=== PATIENT | male | born 1985 | race African-American/Black ===

== ENCOUNTER 2022-06-25 21:29 | Observation (INO) | payer SELFPAY ==
[2022-06-25] VITALS (16 sets, daily range): BP systolic 109–135; BP diastolic 69–95; PULSE 100–136; RESP 14–27; TEMP 37; O2SAT 94–100
--- NOTE | ~2022-06-25 | XR_ITS ---
EXAMINATION: XR chest 1V portable DATE: 06/25/2022 21:46 INDICATION: Cough. TECHNIQUE: A single frontal view of the chest was obtained. COMPARISON: CT abdomen and pelvis 02/18/2019 FINDINGS: The chest demonstrates clear lungs without pneumonia, pleural effusion, or pneumothorax. Th e heart size is normal. IMPRESSION: 1. No acute cardiopulmonary disease. Reviewed, dictated and finalized at location A.
[2022-06-25] MEDS: MAGNESIUM SULF 2 GM/WATER 50ML 2 GM/50 ML BAG IVPB (21:33)
--- NOTE | 2022-06-25 21:39 | ED.ASTHMA ---
HPI - Asthma General Chief Complaint: Asthma Stated Complaint: asthma attack Source: RN notes reviewed History of Present Illness HPI Narrative: Patient presents emergency department from home via EMS for asthma. Patient states that he has a history of asthma and was last admitted for his asthma approximately 1 month ago. He states he has an inhaler and nebulizer machine at home and is been using both of them and called EMS this evening because he been feeling more short of breath he states he has been having a cough this been nonproductive he denies any fevers or chills chest pain abdominal pain or any other symptoms. States he is currently on steroids at home as well the patient was given nebulizer treatment as well as Decadron 10 mg by EMS Related Data Allergies Allergy/AdvReac Type Severity Reaction Status Date / Time peanut Allergy Anaphylaxis Verified 06/25/22 21:35 wool Allergy Difficulty Verified 06/25/22 21:35 Breathing epinephrine AdvReac Other Verified 06/25/22 21:35 Review of Systems Review of Systems: Gen.: Denies fevers or chills ENT: Denies congestion Respiratory: See HPI CV: Denies chest pain or palpitations GI: Denies abdominal pain nausea, emesis or diarrhea Musculoskeletal: Denies back pain or muscle pain Neuro: Denies numbness, tingling, weakness or focal weakness Skin: Denies rash Except as documented, all other systems reviewed and negative [facility] Past Medical History Medical History (Updated 06/26/22 @ 00:36 by Tay Rivero DO) Asthma Social History Social History (Updated 06/25/22 @ 21:40 by Tay Rivero DO) Smoking status: Never smoker Exam Narrative: APPEARANCE: Moderate respiratory distress, sitting upright in bed HEENT: Normocephalic, atraumatic OMM RESPIRATORY: Moderate respiratory distress sitting upright speaking in short phrases wheezing throughout the bilateral lung trejo with decreased breath sounds in the bases CARDIOVASCULAR: Tachycardic and regular without murmurs rubs or gallops. ABDOMINAL: Soft, nontender, nondistended, no rebound or guarding MUSCULOSKELETAl: Moves all extremities. No clubbing, cyanosis or edema. Bilateral calves soft and nontender NEURO: Awake and alert. Following commands, speech normal, no focal deficits SKIN:: Warm, dry. Normal Color PSYCHIATRIC: Normal affect/mood, Course Course Emergency Course: Following breathing treatment breathing is improved patient is more relaxed there is still noted wheezing in the upper lung trejo patient does have continued sinus tachycardia and with continued wheezing will admit at this time Dr. Hair agrees with admission Discussed with patient and family results of workup and diagnosis. Discussed need for admission. Patient and family understand and agree to current treatment plan Vital Signs Vital signs: Vital Signs Temperature 98.6 F 06/25/22 21:26 Pulse Rate 136 H 06/25/22 21:26 Respiratory Rate 18 06/25/22 21:26 Pulse Oximetry 94 06/25/22 21:26 Oxygen Delivery Venturi Mask 06/25/22 21:26 Oxygen Flow Rate 10 06/25/22 21:26 Temperature 98.6 F 06/25/22 21:26 Pulse Rate 107 H 06/25/22 23:41 Respiratory Rate 22 H 06/25/22 23:41 Blood Pressure 120/73 06/25/22 23:41 Pulse Oximetry 100 06/25/22 23:41 Oxygen Delivery Venturi Mask 06/25/22 21:30 Oxygen Flow Rate 10 06/25/22 21:30 MDM - Asthma Lab Data Result diagrams: 06/25/22 21:53 06/25/22 22:43 Labs: Lab Results 06/25/22 06/25/22 06/25/22 Range/Units 21:53 21:53 22:43 WBC 6.9 (4.5-10.0) K/mm3 RBC 4.40 L (4.6-6.20) M/mm3 Hgb 13.8 L (14.0-18.0) g/dL Hct 40.5 L (42.0-52.0) % MCV 92.0 (80-100) fl MCH 31.4 (26-34) pg MCHC 34.1 (32-36) g/dl RDW 12.2 (11.5-14.5) % Plt Count 351 (150-375) k/mm3 MPV 9.1 (7.4-10.4) fl Immature Gran % (Auto) 0.4 (0-0.5) % Neut % (Auto) 54.1 (45.5-73.1) % Lymph % (Auto)
[2022-06-25] MEDS: IPRATROPIUM BR 0.02% INH SOLN 0.5 MG/2.5 ML VIAL INHALATION (21:42)
[2022-06-25] MEDS: ALBUTEROL SULFATE NEB 2.5 MG/3 ML INH 5 MG INHALATION (21:42)
--- NOTE | 2022-06-25 21:49 | PC.NURSE ---
ED respiratory at bedside.
[2022-06-25 22:00] LABS: Basophils Percent Auto 0.1 % (0.2-1.2); Eosinophils Absolute Auto 0.1 K/mm3 (0-0.3); Hematocrit 40.5 % (42.0-52.0); Hemoglobin 13.8 g/dL (14.0-18.0); Immature Granulocyte Absolute 0.03 K/mm3 (0.00-0.031); Immature Granulocyte Percent A 0.4 % (0-0.5); Lymphocytes Absolute Auto 2.36 K/mm3 (0.9-3.2); Mean Corpuscular HGB Conc 34.1 g/dl (32-36); Mean Corpuscular Hemoglobin 31.4 pg (26-34); Mean Platelet Volume 9.1 fl (7.4-10.4); Monocytes Absolute Auto 0.7 K/mm3 (0.1-0.6); Monocytes Percent Auto 9.4 % (2.6-8.5); Neutrophils Absolute Auto 3.8 K/mm3 (1.3-6.7); Neutrophils Percent Auto 54.1 % (45.5-73.1); Platelet Count Result 351 k/mm3 (150-375); Red Cell Distribution Width 12.2 % (11.5-14.5); White Blood Count 6.9 K/mm3 (4.5-10.0)
--- NOTE | 2022-06-25 22:08 | PC.NURSE ---
PD at bedside, patient is in custody. Per EMS patient was [place] up at [facility] [place] [facility].
[2022-06-25 22:36] LABS: SARS-CoV-2 RNA PCR Negative
[2022-06-25 23:03] LABS: Alanine Aminotransferase 25 U/L (6-50); Albumin Level 4.5 g/dL (3.5-5.1); Alkaline Phosphatase 98 U/L (38-126); Anion Gap 18 mmol/L (8-16); Aspartate Amino Transferase 27 U/L (17-59); Bilirubin,Total 1.4 mg/dL (0.2-1.3); Blood Urea Nitrogen 8 mg/dL (9-20); Calcium 8.5 mg/dL (8.4-10.2); Carbon Dioxide 21 mmol/L (22-30); Chloride 103 mmol/L (98-107); Estimated CRCL calculation 81 ml/min; Estimated Glomerular Filt Rate > 60; Glucose 138 mg/dL (65-110); Sodium 142 mmol/L (137-145)
--- NOTE | 2022-06-25 23:06 | PC.NURSE ---
Patient taken of o2 per VORB by ERP.
[2022-06-26] VITALS (26 sets, daily range): BP systolic 102–135; BP diastolic 60–78; PULSE 82–127; RESP 14–21; TEMP 36.4–36.9; O2SAT 98–100; BMI 27.3
[2022-06-26] MEDS: POTASSIUM CHLORIDE 20 MEQ TABLET 40 MEQ PO ×2 (00:12→09:52)
--- NOTE | 2022-06-26 01:04 | PC.NURSE ---
The officer at bedside states he will be going upstairs with the patient since he remains in custody.
--- NOTE | 2022-06-26 01:41 | ADMGEN ---
This patient, Nuno Vizcarra, was admitted to [address] [facility] Surg Room 320-01. Patient/family oriented to hospital policies and general routines including ID bracelet, bed and alarms, visiting hours, pain management, procedures, bathroom and other care routines, personal items, smoking policy, room service/diet, and visiting hours. Information on how to activate the Rapid Response Team has been discussed. Patient/Family are encouraged to report perceived risks to care and to ask questions if they do not understand what they are told or what they should do.
[2022-06-26] MEDS: methylPREDNISolone SOD SUCC 125 MG VIAL 60 MG IV PUSH ×3 (05:17→18:14)
[2022-06-26] MEDS: IPRATROPIUM BR 0.02% INH SOLN 0.5 MG/2.5 ML VIAL INHALATION ×4 (06:17→20:39)
[2022-06-26] MEDS: ALBUTEROL SULFATE NEB 2.5 MG/3 ML INH 5 MG INHALATION ×4 (06:17→20:39)
[2022-06-26] MEDS: LORazepam INJ (*CRX) 2 MG/ML VIAL 1 MG IV PUSH (06:42)
--- NOTE | 2022-06-26 06:51 | ECG_ITS ---
Measurements Intervals [place] Rate: 113 P: 74 MT: 176 QRS: 62 QRSD: 105 T: 37 QT: 335 QTc: 461 Interpretive Statements SINUS TACHYCARDIA BORDERLINE ST-T WAVE ABNORMALITY- INFERIOR LEADS BASELINE ARTIFACT- I, III, AVL, V2, V5-V6 ABNORMAL ECG NO PREVIOUS ECG AVAILABLE FOR COMPARISON Electronically Signed On 06-26-2022 8:05:33 CDT by Dionte Packer D.O.
--- NOTE | 2022-06-26 07:20 | PC.NURSE ---
at 0635 patient receiving breathing treatment. c/o chest pressure, hand cramping, and shortness of breath. unable to obtain pulse ox on room air, placed on oxygen up to 10 L before able to obtain sat of 100%.
--- NOTE | 2022-06-26 07:32 | PM.IMHP ---
H&P: HPI History of Present Illness Date/Time: 06/26/22 07:32 Chief Complaint: Shortness of breath Narrative: 36-year-old male with past medical history of severe asthma with 2 intubations for lung collapse in the past 2 decades is presenting from half-way with an asthma attack. Patient states a couple weeks ago he was started on amoxicillin and prednisone for what he calls ?a chest infection. ? He states his symptoms started to get a little better when he was sent to half-way. At that time, the amoxicillin and prednisone were discontinued. His symptoms got progressively worse with more shortness of breath, coughing, dyspnea on exertion and conversational dyspnea. 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 He denies fevers or chills, no nausea vomiting or diarrhea. No headaches or vision changes. In the ER, he was given breathing treatments, magnesium and Solu-Medrol with some improvement. However, he is requiring 6 L nasal cannula to maintain oxygenation. Therefore he was admitted for observation. Review of Systems Review of Systems: 12 point review of systems was assessed and was negative except as noted in the HPI PMFSH Past Medical History Medical History Asthma Severe asthma requiring intubation x2 with associated pneumothorax x2 Family History Family History (Updated 06/26/22 @ 16:32 by Herminia Guajardo DO) Other Asthma Social History Social History (Updated 06/26/22 @ 16:33 by Herminia Guajardo DO) Social History: Currently in half-way Smoking status: Never smoker Alcohol intake: former Substance use: never Spiritual care concerns: No Meds Home Medications and Allergies Allergies Allergy/AdvReac Type Severity Reaction Status Date / Time peanut Allergy Anaphylaxis Verified 06/25/22 21:35 wool Allergy Difficulty Verified 06/25/22 21:35 Breathing epinephrine AdvReac Other Verified 06/25/22 21:35 Vital Signs Vital Signs - 24 hr 06/25/22 21:26 06/25/22 21:43 06/25/22 22:05 Temperature 98.6 F Pulse Rate 136 H 131 H 125 H Respiratory Rate 18 20 16 Blood Pressure Pulse Oximetry 94 100 Oxygen Delivery Venturi Mask Oxygen Flow Rate 10 06/25/22 22:15 06/25/22 22:22 06/25/22 22:30 Temperature Pulse Rate 118 H 117 H 115 H Respiratory Rate 17 16 17 Blood Pressure 135/84 Pulse Oximetry 100 100 100 Oxygen Delivery Oxygen Flow Rate 06/25/22 21:30 06/25/22 22:45 06/25/22 23:00 Temperature Pulse Rate 107 H 100 Respiratory Rate 17 17 Blood Pressure Pulse Oximetry 98 100 99 Oxygen Delivery Venturi Mask Oxygen Flow Rate 10 06/25/22 23:02 06/25/22 23:15 06/25/22 23:21 Temperature Pulse Rate 110 H 103 H 101 H Respiratory Rate 17 14 Blood Pressure 121/95 H 109/69 Pulse Oximetry 100 94 97 Oxygen Delivery Oxygen Flow Rate 06/25/22 23:30 06/25/22 23:41 06/25/22 23:42 Temperature Pulse Rate 107 H 107 H 112 H Respiratory Rate 15 22 H 27 H Blood Pressure 120/73 Pulse Oximetry 98 100 99 Oxygen Delivery Oxygen Flow Rate 06/25/22 23:45 06/26/22 00:00 06/26/22 00:01 Temperature Pulse Rate 118 H 107 H 101 H Respiratory Rate 23 H 15 17 Blood Pressure 106/60 Pulse Oximetry 100 100 100 Oxygen Delivery Oxygen Flow Rate 06/26/22 00:15 06/26/22 00:21 06/26/22 00:30 Temperature Pulse Rate 96 95 97 Respiratory Rate 16 16 16 Blood Pressure 112/66 Pulse Oximetry 98 100 100 Oxygen Delivery Oxygen Flow Rate 06/26/22 00:41 06/26/22 00:45 06/26/22 01:19 Temperature 98.0 F Pulse Rate 102 H 99 94 Respiratory Rate 20 14 21 H Blood Pressure 102/65 109/78 Pulse Oximetry 99 100 99 Oxygen Delivery Oxygen Flow Rate 06/26/22 02:47 06/26/22 03:01 06/26/22 03:02 Temperature 97.7 F Pulse Rate 95 90 Respiratory Rate 20 B
[2022-06-26] MEDS: MONTELUKAST SODIUM 10 MG TABLET PO ×2 (18:15→21:24)
[2022-06-26] MEDS: FLUTICASONE/SALMETEROL 115-21 MCG INHALER 1 PUFF 2 PUFF INHALATION (20:38)
[2022-06-26] MEDS: ACETAMINOPHEN 325 MG TABLET 650 MG PO (21:24)
[2022-06-27] VITALS (11 sets, daily range): BP systolic 119–124; BP diastolic 72–81; PULSE 91–110; RESP 16–18; TEMP 36.1–36.4; O2SAT 99–100
[2022-06-27] MEDS: methylPREDNISolone SOD SUCC 125 MG VIAL 60 MG IV PUSH ×3 (00:58→12:57)
[2022-06-27] MEDS: IPRATROPIUM BR 0.02% INH SOLN 0.5 MG/2.5 ML VIAL INHALATION ×3 (02:31→13:42)
[2022-06-27] MEDS: ALBUTEROL SULFATE NEB 2.5 MG/3 ML INH 5 MG INHALATION ×3 (02:31→13:43)
[2022-06-27 07:08] LABS: Basophils Percent Auto 0.1 % (0.2-1.2); Hematocrit 38.4 % (42.0-52.0); Hemoglobin 12.5 g/dL (14.0-18.0); Immature Granulocyte Absolute 0.04 K/mm3 (0.00-0.031); Immature Granulocyte Percent A 0.3 % (0-0.5); Lymphocytes Absolute Auto 0.81 K/mm3 (0.9-3.2); Lymphocytes Percent Auto 6.8 % (18.3-44.2); Mean Corpuscular HGB Conc 32.6 g/dl (32-36); Mean Corpuscular Hemoglobin 30.9 pg (26-34); Mean Platelet Volume 9.4 fl (7.4-10.4); Monocytes Absolute Auto 0.6 K/mm3 (0.1-0.6); Monocytes Percent Auto 4.6 % (2.6-8.5); Neutrophils Absolute Auto 10.5 K/mm3 (1.3-6.7); Neutrophils Percent Auto 88.2 % (45.5-73.1); Platelet Count Result 336 k/mm3 (150-375); Red Blood Count 4.04 M/mm3 (4.6-6.20); Red Cell Distribution Width 12.5 % (11.5-14.5); White Blood Count 11.9 K/mm3 (4.5-10.0)
[2022-06-27 07:20] LABS: Alanine Aminotransferase 21 U/L (6-50); Albumin Level 4.2 g/dL (3.5-5.1); Alkaline Phosphatase 65 U/L (38-126); Anion Gap 14 mmol/L (8-16); Aspartate Amino Transferase 19 U/L (17-59); Bilirubin,Total 1.4 mg/dL (0.2-1.3); Blood Urea Nitrogen 12 mg/dL (9-20); Calcium 8.7 mg/dL (8.4-10.2); Carbon Dioxide 22 mmol/L (22-30); Chloride 103 mmol/L (98-107); Estimated CRCL calculation 86 ml/min; Estimated Glomerular Filt Rate > 60; Glucose 151 mg/dL (65-110); Potassium 4.2 mmol/L (3.4-5.0); Sodium 139 mmol/L (137-145)
[2022-06-27] MEDS: ACETAMINOPHEN 325 MG TABLET 650 MG PO (07:56)
[2022-06-27] MEDS: FLUTICASONE/SALMETEROL 115-21 MCG INHALER 1 PUFF 2 PUFF INHALATION (08:47)
--- NOTE | 2022-06-27 12:36 | PM.DS ---
DS: Admitting Diagnosis Discharge Date June 27, 2022 Admitting Diagnosis Shortness of breath DS: Discharge Diagnosis Discharge Diagnosis (1) Acute asthma exacerbation: Code(s): J45.901 - Unspecified asthma with (acute) exacerbation Status: Acute Assessment and Plan: Will start Advair, Singulair, continue Solu-Medrol, breathing treatments every 4-6 hours Plan DVT prophylaxis with SCDs GI prophylaxis not indicated Code status full code DS: Summary Hospital Course Hospital Course: 36-year-old male with past medical history of severe asthma with 2 intubations for lung collapse in the past 2 decades is presenting from care home with an asthma attack.? Patient states a couple weeks ago he was started on amoxicillin and prednisone for what he calls ?a chest infection. ?? He states his symptoms started to get a little better when he was sent to care home.? At that time, the amoxicillin and prednisone were discontinued.? His symptoms got progressively worse with more shortness of breath, coughing, dyspnea on exertion and conversational dyspnea.? 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 He denies fevers or chills, no nausea vomiting or diarrhea.? No headaches or vision changes.? In the ER, he was given breathing treatments, magnesium and Solu-Medrol with some improvement.? However, he is requiring 6 L nasal cannula to maintain oxygenation.? Therefore he was admitted for observation. His symptoms improved dramatically with steroids, breathing treatments, Advair and singular. He was able to be weaned to room air comfortably. Therefore, he was discharged back to care home on Advair, a prednisone burst, Singulair and albuterol as needed. Time Spent with Patient Time attestation: Total time spent providing and/or coordinating discharge services: Exam Narrative: General: No acute distress, alert and oriented per baseline HEENT: Atraumatic, normocephalic, mucous membranes moist CV: Regular rate and rhythm, S1, S2 Lungs: Clear to auscultation bilaterally, no wheeze Abdomen: Soft, nontender, nondistended Extremities: Normal to inspection Skin: No rashes noted, no lesions or wounds seen Psych: Euthymic, normal affect DS: Data Data Completed and Pending Labs on day of discharge: Labs from last 24 hours 06/27/22 06/27/22 06:40 06:40 WBC 11.9 H RBC 4.04 L Hgb 12.5 L Hct 38.4 L MCV 95.0 MCH 30.9 MCHC 32.6 RDW 12.5 Plt Count 336 MPV 9.4 Immature Gran % (Auto) 0.3 Neut % (Auto) 88.2 H Lymph % (Auto) 6.8 L [place] % (Auto) 4.6 Eos % (Auto) 0.0 Baso % (Auto) 0.1 L Lymph # (Auto) 0.81 L [place] # (Auto) 0.6 Eos # (Auto) 0.0 Baso # (Auto) 0.0 Abs Immat Gran (auto) 0.04 H Absolute Neuts (auto) 10.5 H Absolute Nucleated RBC 0.0 Nucleated RBC % 0.0 Sodium 139 Potassium 4.2 Chloride 103 Carbon Dioxide 22 Anion Gap 14 BUN 12 Creatinine 1.10 Estim Creat Clear Calc 86 Estimated GFR > 60 Glucose 151 H Calcium 8.7 Total Bilirubin 1.4 H AST 19 ALT 21 Alkaline Phosphatase 65 Total Protein 8.0 Albumin 4.2 Discharge Plan Discharge Attending physician on discharge: Herminia Guajardo Discharging Clinician: Herminia Guajardo Patient Disposition: Home, Self-Care Activity: as tolerated Diet: as tolerated Patient Instructions: Asthma (DC) Stand Alone Forms: General Discharge Information Follow-up/Referrals: PHYSICIAN,FUR REMODELER [Primary Care Provider] - Discharge Medications: New montelukast [Singulair] 10 mg Tablet 10 mg PO HS 30 Days Qty: 30 0RF Advair HFA 115-21 mcg/actuation Hfa Aerosol Inhaler 2 puff inhalation Q12HRT 30 Days Qty: 12 0RF prednisone 50 mg tablet 50 mg PO DAILY Qty: 5 0RF Date of admission: 06/26/22 00:24 Primary Care Provider: PHYSICIAN,FUR REMODELER Admitting Provider: Lee Ann
== END 2022-06-27 14:20 | disposition home or self-care (01) ==
LOC: ANHED 06-26 00:36 → ANH3MEDSUR 06-26 01:20
PROVIDERS: Admitting Provider Internal Medicine; Emergency Provider Emergency Medicine; Visit Provider Student in an Organized Health Care Education/Training Program
DX: J45.901 Unspecified asthma with (acute) exacerbation (principal); R00.0 Tachycardia, unspecified; R94.31 Abnormal electrocardiogram [ECG] [EKG]; Z20.822 Contact with and (suspected) exposure to COVID-19; Z79.51 Long term (current) use of inhaled steroids
CPT/HCPCS: 36415; 71045; 80053; 85025; 93005; 94640; 96365; 96374; 96375; 96376; 99285; A9270; C9803; G0378; J2060; J2930; J3475; U0003; U0005

== ENCOUNTER 2022-06-27 21:10 | Emergency (ER) | payer OTHER, SELFPAY ==
[2022-06-27] VITALS (8 sets, daily range): BP systolic 106–123; BP diastolic 49–82; PULSE 110–139; RESP 15–21; TEMP 36.6; O2SAT 82–100
--- NOTE | 2022-06-27 21:42 | ECG_ITS ---
Measurements Intervals [place] Rate: 114 P: 64 [place]: 147 QRS: 48 QRSD: 95 T: 19 QT: 354 QTc: 488 Interpretive Statements SINUS TACHYCARDIA INCOMPLETE RIGHT BUNDLE BRANCH BLOCK NONSPECIFIC T-WAVE ABNORMALITY- INFERIOR LEADS ABNORMAL ECG COMPARED TO ECG 06/26/2022 07:01:00 NO SIGNIFICANT CHANGES Electronically Signed On 06-28-2022 6:50:44 CDT by Dionte Packer D.O.
[2022-06-27] MEDS: ALBUTEROL SULFATE NEB 2.5 MG/3 ML INH 15 MG INHALATION (22:12)
[2022-06-27] MEDS: FAMOTIDINE 20 MG/2 ML VIAL 40 MG IV PUSH (22:18)
[2022-06-27] MEDS: methylPREDNISolone SOD SUCC 125 MG VIAL IV PUSH (22:18)
[2022-06-27] MEDS: diphenhydrAMINE HCl INJ 50 MG/ML VIAL IV PUSH (22:19)
[2022-06-27 22:23] LABS: Basophils Percent Auto 0.1 % (0.2-1.2); Hematocrit 39.2 % (42.0-52.0); Hemoglobin 13.1 g/dL (14.0-18.0); Immature Granulocyte Absolute 0.15 K/mm3 (0.00-0.031); Immature Granulocyte Percent A 1.1 % (0-0.5); Lymphocytes Absolute Auto 0.66 K/mm3 (0.9-3.2); Lymphocytes Percent Auto 4.8 % (18.3-44.2); Mean Corpuscular HGB Conc 33.4 g/dl (32-36); Mean Corpuscular Hemoglobin 31.3 pg (26-34); Mean Corpuscular Volume 93.8 fl (80-100); Mean Platelet Volume 9.3 fl (7.4-10.4); Monocytes Absolute Auto 1.3 K/mm3 (0.1-0.6); Monocytes Percent Auto 9.1 % (2.6-8.5); Neutrophils Absolute Auto 11.7 K/mm3 (1.3-6.7); Neutrophils Percent Auto 84.9 % (45.5-73.1); Platelet Count Result 334 k/mm3 (150-375); Red Blood Count 4.18 M/mm3 (4.6-6.20); Red Cell Distribution Width 12.5 % (11.5-14.5); White Blood Count 13.8 K/mm3 (4.5-10.0)
[2022-06-27] MEDS: SODIUM CHLORIDE 0.9% IV 1,000 ML 999 ML IV CONT (22:28)
[2022-06-27 22:30] LABS: SARS-CoV-2 RNA PCR Negative
[2022-06-27 22:31] LABS: Anion Gap 19 mmol/L (8-16); Blood Urea Nitrogen 16 mg/dL (9-20); Calcium 9.2 mg/dL (8.4-10.2); Carbon Dioxide 19 mmol/L (22-30); Chloride 101 mmol/L (98-107); Estimated CRCL calculation 73 ml/min; Estimated Glomerular Filt Rate > 60; Glucose 159 mg/dL (65-110); Magnesium 1.9 mg/dL (1.6-2.3); Potassium 3.3 mmol/L (3.4-5.0); Sodium 139 mmol/L (137-145)
[2022-06-27] MEDS: MAGNESIUM SULF 2 GM/WATER 50ML 2 GM/50 ML BAG IVPB (22:41)
[2022-06-27 22:58] LABS: Lactic Acid Reflex 6.3 mmol/L (0.7-2.0)
[2022-06-27] MEDS: SODIUM CHLORIDE 0.9% IV 2,000 ML 999 ML IV CONT (23:27)
[2022-06-28 00:19] LABS: Lactic Acid Reflex 5.9 mmol/L (0.7-2.0)
--- NOTE | 2022-06-28 00:33 | ED.GENADULT ---
HPI - General Adult General Chief complaint: Shortness of Breath/Dyspnea Stated complaint: ASTHMA Time Seen by Provider: 06/27/22 21:35 History of Present Illness HPI narrative: This is a 36-year-old male with history of asthma and allergy to peanuts presenting to the ED with difficulty breathing. Patient has restarted having difficulty breathing several hours ago. It is also associated with itching around the patient's chest and neck. Also has a sensation of throat closure. Patient is allergic to peanuts but has not had a known exposure. Patient also has a history of asthma and has been seen in our emergency department before. Related Data Allergies Allergy/AdvReac Type Severity Reaction Status Date / Time peanut Allergy Anaphylaxis Verified 06/25/22 21:35 wool Allergy Difficulty Verified 06/25/22 21:35 Breathing epinephrine AdvReac Other Verified 06/25/22 21:35 Review of Systems Review of Systems: CONSTITUTIONAL: Denies night sweats. EYES: No eye pain ENT: Denies rhinorrhea CARDIOVASCULAR: Denies palpitations RESPIRATORY: Denies hemoptysis GASTROINTESTINAL: Denies hematemesis GENITOURINARY: Denies hematuria. SKIN: Denies rash MUSCULOSKELETAL: Denies myalgia. NEUROLOGIC: Denies weakness. PSYCHIATRIC: Denies delusions PMFSH Past Medical History Medical History Asthma Severe asthma requiring intubation x2 with associated pneumothorax x2 Family History Family History Other Asthma Social History Social History Social History: Currently in residential Smoking status: Never smoker Alcohol intake: former Substance use: never Spiritual care concerns: No Exam Narrative: APPEARANCE: No apparent distress. Head atraumatic. EYES: PERRLA/EOMI, NOSE: Normal no drainage NECK: Supple, Trachea midline RESPIRATORY: Mild wheezing in all trejo. CARDIOVASCULAR: S1S2 appreciated ABDOMINAL: Soft, nontender, nondistended, MUSCULOSKELETAl: No obvious deformities NEURO: Alert. Moving 4/4 extremities SKIN:: Excoriations with no urticarial wheals over the patient's chest and neck PSYCHIATRIC: Normal affect Course Vital Signs Vital signs: Vital Signs Temperature 97.8 F 06/27/22 21:10 Pulse Rate 139 H 06/27/22 21:10 Respiratory Rate 21 H 06/27/22 21:10 Blood Pressure 123/82 06/27/22 21:10 Pulse Oximetry 85 L 06/27/22 21:10 Oxygen Delivery Non-Rebreather Mask 06/27/22 21:10 Oxygen Flow Rate 10 06/27/22 21:10 Temperature 97.8 F 06/27/22 21:10 Pulse Rate 113 H 06/27/22 23:31 Respiratory Rate 19 06/27/22 23:31 Blood Pressure 115/55 L 06/27/22 23:31 Pulse Oximetry 100 06/27/22 23:31 Oxygen Delivery Non-Rebreather Mask 06/27/22 21:36 Oxygen Flow Rate 10 06/27/22 21:36 Medical Decision Making MDM Narrative Medical decision making narrative: this is a 36-year-old male presenting to ED in respiratory distress. Patient is also complaining of the itching. Patient will be treated for asthma as well as any allergic reaction. Patient's lab work was significant for an initial lactate of 6.3. This was repeated after patient received some fluids and was trending down to 5.9. Potassium was slightly low at 3.3 although this is most likely from shifting from the hour long albuterol treatment he received. Chest x-ray was unremarkable. EKG interpretation: Rhythm Sinus tach, Rate 114], [place] -[normal], [place] -[normal], QRS [narrow], QTC [normal], T waves - T-wave inversions in lead 3 and AVF, ST Segments - [Negative for concerning elevations] Final interpretations: sinus tachycardia with nonspecific T-wave inversions Upon re-evaluation the patient is resting comfortably. He is no longer wheezing. His vital signs have normalized. The patient will be discharged into police custody. Differential Diagnosis
[2022-06-28 00:49] VITALS: BP 110/46; PULSE 92; RESP 18; O2SAT 100
[2022-06-28 01:20] LABS: Reflex Lactic Acid Yes or No Add Lactic
== END 2022-06-28 01:07 ==
PROVIDERS: Emergency Provider Emergency Medicine
DX: T78.40XA Allergy, unspecified, initial encounter (principal); J45.909 Unspecified asthma, uncomplicated; Z20.822 Contact with and (suspected) exposure to COVID-19; Z91.010 Allergy to peanuts
CPT/HCPCS: 36415; 80048; 83605; 83735; 85025; 93005; 94640; 96361; 96365; 96375; 99284; C9803; J1200; J2930; J3475; J7030; U0003; U0005

== ENCOUNTER 2025-06-25 23:34 | Emergency (ER) | payer SELFPAY ==
--- NOTE | ~2025-06-25 | XR_ITS ---
Examination: XR chest 2V Clinical History: sob Comparison: 06/25/2022 Technique: PA and Lateral Findings: Cardiomediastinal silhouette normal size and configuration. Lungs clear. No acute bony abnormality. IMPRESSION: 1. No acute cardiopulmonary findings. Reviewed, dictated and finalized at location R.
--- OUTSIDE RECORDS SUMMARY | 2025-06-25 23:38 | XMS_ITS | Clinical Summary ---
Author Organization [facility] Address [address] [place] [id number] Care Team Providers Care Aircraft Riveter Name Role Phone Unavailable Primary Care Provider Unavailabl e Social History Tobacco Use Types Packs/Day Years Used Date Smoking Tobacco: Never Assessed Sex and Gender Information Value Date Recorded Sex Assigned at Not on file Legal Sex Male 4:56 PM CDT Gender Identity Not on file Sexual Orientation Not on file Plan of Treatment Health Maintenance Due Date Last Done Comments Annual Physical 1989 Hepatitis C 2004 DTaP, Tdap and Td Vaccines ( 1 - Tdap) 2005 Hepatitis B Vaccines (1 of 3 - 19+ 3-dose series) 2005 HPV Vaccines (1 - 3-dose SCD M series) 2013 COVID-19 Vaccine ( - 2023-2 5 season) 2025 Meningococcal B Vaccine Aged Out No l onger eligible based on patient's age to complete this topic Meningococcal Vaccine Aged Out No pari dede eligible based on patient's age to complete this topic Pneumococcal Vaccine: Pediat rics (0 to 5 Years) and At-Risk Patients (6 to 49 Years) Aged Out No longer eligible b ased on patient's age to complete this topic RSV Immunizations Under 20 Months Aged Out No longer eligible based on patient's age to complete this topic
[2025-06-25 23:50] VITALS: BP 173/112; PULSE 117; RESP 22; TEMP 36.8; O2SAT 100
[2025-06-26] VITALS (13 sets, daily range): BP systolic 136–159; BP diastolic 81–109; PULSE 97–98; RESP 16; O2SAT 96–99
--- NOTE | 2025-06-26 | ED_ITS ---
HPI - General Adult General Chief complaint: Unspecified Stated complaint: Not feeling well Asthma acting up, BP high Time Seen by Provider: 06/26/25 00:00 Source: patient Mode of arrival: ambulatory Limitations: no limitations History of Present Illness HPI narrative: Patient is a 39-year-old male who presents the ED with report of shortness of breath. Patient reports history of asthma and states he had an asthma attack last week. Was seen at a hospital in [place], rx'd steroids. Has been taking these as prescribed with improvement. He reports his breathing became worse again tonight a few hours ago. He gave himself a nebulizer treatment at home which he does feel improved his breathing. He checked his blood pressure afterwards however noted to be elevated into the 170s /100s. He became concerned and prompted here for further evaluation. Denies recent cough or cold symptoms, fevers, pain or swelling in his legs, chest pain. Patient denies previous history of hypertension. Does not take any medications for his blood pressure. Related Data Allergies Allergy/AdvReac Type Severity Reaction Status Date / Time peanut Allergy Anaphylaxis Verified 06/25/22 21:35 wool Allergy Difficulty Verified 06/25/22 21:35 Breathing epinephrine AdvReac Other Verified 06/25/22 21:35 Review of Systems 2 Review of Systems: All systems reviewed & are unremarkable except as noted in HPI. All systems reviewed & are unremarkable except as noted in HPI and below PMFSH Past Medical History Medical History Asthma Severe asthma requiring intubation x2 with associated pneumothorax x2 Family History Family History Other Asthma Social History Social History Social History: Currently in [facility] Smoking status: Never smoker Alcohol intake: former Substance use: never Spiritual care concerns: No Exam 2 Narrative: GENERAL: Well appearing, well-nourished, non-toxic, in no acute distress. HEAD: Normocephalic, atraumatic. RESPIRATORY: Airway patent, respirations nonlabored. Very occasional faint wheezing. No significant persistent wheezing heard. CARDIOVASCULAR: Borderline tachycardic with regular rhythm without murmurs, rubs, or gallops. MUSCULOSKELETAL: Moves all extremities. No gross deformities. SKIN: Warm, dry, normal color. NEURO: A&O X3. Speech clear. Cranial nerves II-XII grossly intact. Steady gait. No ataxic movements. PSYCHIATRIC: Anxious. Normal interaction. Course Vital Signs Vital signs: Vital Signs Temperature 98.3 F 06/25/25 23:50 Pulse Rate 117 H 06/25/25 23:50 Respiratory Rate 22 H 06/25/25 23:50 Blood Pressure 173/112 H 06/25/25 23:50 Pulse Oximetry 100 06/25/25 23:50 Temperature 98.3 F 06/25/25 23:50 Pulse Rate 98 06/26/25 02:54 Respiratory Rate 16 06/26/25 02:54 Blood Pressure 136/91 H 06/26/25 02:54 Pulse Oximetry 96 06/26/25 02:54 Medical Decision Making MDM Narrative Medical decision making narrative: Patient presented to ED with shortness of breath, history of asthma, elevated blood pressure tonight. Patient's blood pressure upon arrival 173/112. He was also tachycardic and tachypneic. Afebrile. Oxygen stable on room air. He denies previous history of hypertension. Will continue to monitor. BP did improve into the 150 systolic without intervention prior to my evaluation. Patient is in no distress, but is very anxious. Likely contributing to symptoms. No evidence of respiratory distress. No significant wheezing even heard on auscultation. He did report using a nebulizer just prior to arrival and states this has improved his breathing. EKG with sinus tachycardia, no concerning ST changes Laboratory studies with mild leukocytosis of 14.0. Patient has been on steroids recently. CMP unremarkable. Kidney function is stable. Mild elevation of total bilirubin, but this appears chronic per records, consistent with previous records. No right upper quadrant tenderness on exam. Otherwise normal LFTs. Troponin within normal range D-dimer within normal range Viral swabs negative Chest x-ray interpreted by myself without evidence of acute focal consolidation. Blood pressure has normalized into the 130s over 90s. Patient feeling improved after fluids. Discussed overall reassuring workup, feel patient is safe for discharge home at this time. Recommended close follow-up with PCP for further evaluation. Recommend he continue to monitor his pressures at home, as well as continue inhaler/nebulizers as needed. Discussed strict return precautions. Patient in agreement plan. Discharged in stable condition. Medical Records Medical records reviewed: Yes I reviewed the external patient's medical records. Vital Signs Vital Signs: Vital Signs Temperature 98.3 F 06/25/25 23:50 Pulse Rate 117 H 06/25/25 23:50 Respiratory Rate 22 H 06/25/25 23:50 Blood Pressure 173/112 H 06/25/25 23:50 Pulse Oximetry 100 06/25/25 23:50 Temperature 98.3 F 06/25/25 23:50 Pulse Rate 98 06/26/25 02:54 Respiratory Rate 16 06/26/25 02:54 Blood Pressure 136/91 H 06/26/25 02:54 Pulse Oximetry 96 06/26/25 02:54 Lab Data Lab results reviewed: Yes I reviewed the patient's lab results. 06/26/25 00:24 06/26/25 00:24 Labs: Lab Results 06/26/25 Range/Units 00:24 WBC 14.0 H (4.5-10.0) K/mm3 RBC 4.55 L (4.6-6.20) M/mm3 Hgb 14.2 (14.0-18.0) g/dL Hct 43.4 (42.0-52.0) % MCV 95.4 (80-100) fl MCH 31.2 (26-34) pg MCHC 32.7 (32-36) g/dl RDW 11.9 (11.5-14.5) % Plt Count 333 (150-375) k/mm3 MPV 8.9 (7.4-10.4) fl Immature Gran % (Auto) 1.4 H (0-0.5) % Neut % (Auto) 75.0 H (45.5-73.1) % Lymph % (Auto) 14.7 L (18.3-44.2) % [place] % (Auto) 8.5 (2.6-8.5) % Eos % (Auto) 0.2 (0-4.4) % Baso % (Auto) 0.2 (0.2-1.2) % Lymph # (Auto) 2.05 (0.9-3.2) K/mm3 [place] # (Auto) 1.2 H (0.1-0.6) K/mm3 Eos # (Auto) 0.0 (0-0.3) K/mm3 Baso # (Auto) 0.0 (0.0-0.1) K/mm3 Abs Immat Gran (auto) 0.20 H (0.00-0.031) K/mm3 Absolute Neuts (auto) 10.5 H (1.3-6.7) K/mm3 Absolute Nucleated RBC 0.000 (0.0-0.012) K/mm3 Nucleated RBC % 0.0 (0.0-0.2) % PT 12.9 (11.1-14.7) Seconds INR 1.0 APTT 24.8 (22.3-36.8) Seconds D-Dimer < 0.27 (<0.48) ug/mL Sodium 136 L (137-145) mmol/L Potassium 3.9 (3.4-5.0) mmol/L Chloride 100 (98-107) mmol/L Carbon Dioxide 28 (22-30) mmol/L Anion Gap 8 (4-12) mmol/L BUN 15 (9-20) mg/dL Creatinine 1.23 (0.7-1.3) mg/dL Estim Creat Clear Calc 80 ml/min Estimated GFR > 60 (59 - ) Glucose 96 (65-110) mg/dL Calcium 8.9 (8.4-10.2) mg/dL Total Bilirubin 1.6 H (0.2-1.3) mg/dL AST 36 (17-59) U/L ALT 50 (6-50) U/L Alkaline Phosphatase 51 (38-126) U/L Troponin I 0.013 (0.000-0.034) ng/mL Total Protein 8.1 (6.3-8.2) g/dL Albumin 4.5 (3.5-5.1) g/dL Influenza A (RT-PCR) Negative (Negative) Influenza B (RT-PCR) Negative (Negative) RSV (RT-PCR) Negative (Negative) SARS-CoV-2 RNA (RT-PCR) Negative (Negative) Imaging Data Attestation: I personally reviewed and interpreted this imaging study as follows: My impression: CXR: No acute cardiopulmonary disease ECG Data EKG #1: Attestation: I personally reviewed and interpreted this ECG as follows: ECG completion date: 06/26/25 ECG completion time: 00:55 EKG Interpretation: tachycardia (103), sinus rhythm and non-specific ST changes Discharge Plan Discharge Clinical Impression: Elevated blood pressure, situational Asthma Qualifiers: Asthma severity: unspecified severity Asthma persistence: unspecified Asthma complication type: unspecified Qualified Code(s): J45.909 - Unspecified asthma, uncomplicated Patient Disposition: Home Condition: Stable Instructions: Antibiotic Form, Asthma (ED), Hypertension (ED) Additional Instructions: Your workup here was reassuring. Continue to monitor blood pressure at home. Keep recording of the numbers. Continue your inhalers and nebulizers as needed. Follow-up with your primary care doctor for further evaluation. Return to the ED if you experience worsening or severe shortness of breath, chest pain, unable to keep down food or drink, persistent fevers, pain or swelling in your legs, or any other symptoms of concern. Patient Language: Honduran Prescriptions: No Action epinephrine [EpiPen] 0.3 mg/0.3 mL auto-injector 0.3 mg IM ONCE Qty: 2 0RF Rx Instructions: as a single dose; may repeat once prednisone 50 mg tablet 50 mg PO DAILY 5 Days Qty: 5 0RF montelukast [Singulair] 10 mg Tablet 10 mg PO HS 30 Days Qty: 30 0RF Advair HFA 115-21 mcg/actuation Hfa Aerosol Inhaler 2 puff inhalation Q12HRT 30 Days Qty: 12 0RF prednisone 50 mg tablet 50 mg PO DAILY Qty: 5 0RF Follow-up/Referrals: PHYSICIAN,SPORTS CARTOONIST [Primary Care Provider, Internal Medicine] Rodríguez Branch MD [Physician, Family Practice] Referral Note: PRIMARY CARE Time of Disposition: 02:30
--- NOTE | 2025-06-26 00:21 | ECG_ITS ---
Test Date: 2025-06-26 00:55:52 Measurements Intervals [place] Rate: 103 P: 61 CA: 124 QRS: 35 QRSD: 91 T: 55 QT: 347 QTc: 454 Interpretive Statements SINUS TACHYCARDIA MODERATE VOLTAGE CRITERIA FOR LVH, CONSIDER NORMAL VARIANT [MEETS CRITERIA IN ONE OF: R(aVL), S(V1), R(V5), R(V5/V6)+S(V1)] NONSPECIFIC T-WAVE ABNORMALITY ABNORMAL ECG No previous ECG available for comparison Electronically Signed On 06-26-2025 07:59:30 CDT by Chalo Loredo M.D.
[2025-06-26 00:43] LABS: Hematocrit 43.4 % (42.0-52.0); Hemoglobin 14.2 g/dL (14.0-18.0); Immature Granulocyte Percent A 1.4 % (0-0.5); Lymphocytes Absolute Auto 2.05 K/mm3 (0.9-3.2); Mean Corpuscular HGB Conc 32.7 g/dl (32-36); Mean Corpuscular Hemoglobin 31.2 pg (26-34); Mean Corpuscular Volume 95.4 fl (80-100); Nucleated Red Blood Cells Absolute Auto 0.000 K/mm3 (0.0-0.012); Nucleated Red Blood Cells Perc 0.0 % (0.0-0.2); Platelet Count Result 333 k/mm3 (150-375); Red Blood Count 4.55 M/mm3 (4.6-6.20); White Blood Count 14.0 K/mm3 (4.5-10.0)
--- OUTSIDE RECORDS SUMMARY | 2025-06-26 00:43 | XMS_ITS | Clinical Summary ---
Author Organization [facility] Address [address] [place] [id number] Care Team Providers Care Local Operator Name Role Phone Unavailable Primary Care Provider [...]
--- OUTSIDE RECORDS SUMMARY | 2025-06-26 00:43 | XMS_ITS | Clinical Summary ---
Author Organization [facility] Address [address] [place] [address] Phone Care Team Providers Care Detective Private Eye Name Role Phone Provider, Unknown Primary Care Provider Unavaila ble Allergies No known active allergies Medications albuterol 108 (90 Base) MCG/ACT Aerosol Solution take 2 Puffs by inhalation every 6 hours as needed for Wheezing. 8 g 5 Active albuterol (PROVENTIL, VENTOLIN) (2.5 MG/3ML) 0.083% Nebulizer Soln 3 mL by Nebulization route every 6 hours as needed for Wheezing for up to 30 days. 75 mL 5 07/13/20 25 Active loratadine (Claritin) 10 MG Tablet Take 1 Tablet by mouth daily. 5 Active predniSONE (DELTASONE) 50 MG Tablet Take 1 Tablet by mouth daily for 5 days. 5 Tablet 5 06/19/20 25 Encounters Date Type Department Care Team Description 06/13/2025 9:48 AM CDT - 06/13/2025 2:16 PM CDT Emergency [facility] Emergency [address] [place] [address] Ilene Barragan APRN, SEWING SUPERVISOR Asthma exacerbation Discharge Disposition: Discharged to home or Selfcare 06/13/2025 Travel from Last 3 Months Social History Tobacco Use Types Packs/Day Years Used Date Smoking Tobacco: Never Smokeless Tobacco: Never Tobacco Cessation:Counseling Given: Not Answered Alcohol Use Standard Drinks/Week Comments Not Currently 0 (1 standard drink = 0.6 oz pur e alcohol) Sex and Gender Information Value Date Recorded Sex Assigned at Not on file Legal Sex Male 8:46 AM CDT Gender Identity Not on file Sexual Orientation Not on file Last Filed Vital Signs Vital Sign Reading Time Taken Comments Blood Pressure 142/92 06/13/2025 2:00 PM CDT Pulse 107 06/13/2025 2:00 PM CDT Temperature 36.8 C (98.2 F) 06/13/2025 9:51 AM CDT Respiratory Rate 20 06/13/2025 9:51 AM CDT Oxygen Saturation 98% 06/13/2025 2:00 PM CDT Inhaled Oxygen Concentration - - Weight 93 kg (205 lb) 06/13/2025 9:51 AM CDT Height 180.3 cm (5' 11) 06/13/2025 9:51 AM CDT Body Mass Index 28.59 06/13/2025 9:51 AM CDT Plan of Treatment Health Maintenance Due Date Last Done Comments Hepatitis C Virus (HCV) Screening 1986 TdaP Immunization 1986 Human Papillomavirus (HPV) Immunization (1 - 3-dose SCDM series) 2013 Influenza Immunization (#1) 2025 SARS-COV-2 Immunization ( season) 2025 Respiratory Syncytial Virus (RSV) Immunization (Adult) (1 - 1-dose 75+ series) 2061 Hepatitis B Immunization Completed 002, 07/31/1997, 06/10/1997 Meningococcal Immunization (ACWY) Aged Out No longer eligible b ased on patient's age to complete this topic Pneumococcal Immunization Combined Aged Out No longer eligible b ased on patient's age to complete this topic Rotavirus Immunization Aged Out No lo nger eligible based on patient's age to complete this topic Procedures Procedure Name Priority Date/Time Associated Diagnosis Comments XR CHEST SINGLE VIEW STAT 06/13/2025 11:03 AM CDT CBC WITH AUTO DIFFERENTIAL STAT 06/13/2025 9:50 AM CDT MAGNESIUM (MG) STAT 06/13/2025 9:50 AM CDT CMP (COMPREHENSIVE METABOLIC PANEL) STAT 06/13/2025 9:50 AM CDT COMPLETE BLOOD COUNT (CBC) WITH DIFF STAT 06/13/2025 9:50 AM CDT RSV,SARS-COV-2,INFLUE NZA A&B BY PCR STAT 06/13/2025 9:50 AM CDT from Last 3 Months Results * XR CHEST SINGLE VIEW (06/13/2025 11:03 AM CDT) Anatomical Region Laterality Modality Chest N/A Digital Radiogra phy 06/13/2025 11:0 3 AM CDT Impressions 06/13/2025 11:48 AM CDT IMPRESSION: No acute pulmonary disease. Narrative 06/13/2025 11:48 AM CDT XR CHEST SINGLE VIEW : 06/13/2025 11:03 AM DICTATING PHYSICIAN: YASMIN AGRAWAL [facility]. HISTORY: As below. ADDITIONAL TECHNOLOGIST HISTORY: c/o asthma flare up starting this am. He used his rescue inhaler a few times with no improvement so he called ems. EMS reported stable vs with audible wheezing COMPARISON: None. TECHNIQUE: Single view radiograph of the chest was obtained. FINDINGS: Cardiomediastinal silhouette: Within normal limits. Pulmonary vascularity: Within normal limits. Lung parenchyma: Clear of nodules and infiltrates. Pleura: No evidence for effusion or pneumothorax. Osseous structures: Regional osseous structures are intact. Age-appropriate degenerative changes noted. Support lines and tubes: None. Postoperative changes: None. Procedure Note Huber Agrawal MD - 06/13/2025 XR CHEST SINGLE VIEW : 06/13/2025 11:03 AM DICTATING PHYSICIAN: YASMIN AGRAWAL [facility] HISTORY: As below. ADDITIONAL TECHNOLOGIST HISTORY: c/o asthma flare up starting this am. Heused his rescue inhaler a few times with no improvement so he called ems.EMS reported stable vs with audible wheezing COMPARISON: None. TECHNIQUE: Single view radiograph of the chest was obtained. FINDINGS: Cardiomediastinal silhouette: Within normal limits. Pulmonary vascularity: Within normal limits. Lung parenchyma: Clear of nodules and infiltrates. Pleura: No evidence for effusion or pneumothorax. Osseous structures: Regional osseous structures are intact.Age-appropriate degenerative changes noted. Support lines and tubes: None. Postoperative changes: None. IMPRESSION: No acute pulmonary disease. Ilene Barragan FAMILY SERVICE WORKER, SEWING SUPERVISOR IMG DIAGNOSTIC ORDERA BLES Final Result * rsv,flu,covid (06/13/2025 9:50 AM CDT) FLU A Negative Negative, Error 06/13/2025 11:26 AM CDT [facility] FLU B Negative Negative 06/13/2025 11:26 AM CDT [facility] RESP SYNC VIRUS Negative Negative 11:26 AM CDT [facility] SARSCOV2 NOT DETECTED (Reference Range for this test is Not Detected) 06/13/2025 11:26 AM CDT [facility] Comment:This test was perfor med by a Reverse Gasket Inspector PCR Method. Nasal NASOPHARYNGEAL STRUCTURE / Unknown Non-Phlebotomy Collection / Unknown 06/13/2025 9:50 AM CDT 06/13/2025 10:41 AM CDT Kala Fields MD MICROBIOLOGY - GENERAL O RDERABLES Final Result [facility] [address] [place] [address] * (ABNORMAL) CBC with Auto Differential (06/13/2025 9:50 AM CDT) WBC 10.89 4.00 - 12.00 10(3)/mcL 06/13/2025 10:51 AM CDT [facility] RBC 4.61 4.40 - 5.80 10(6)/mcL 06/13/2025 10:51 AM CDT [facility] HEMOGLOBIN (HGB) 14.5 13.0 - 16.5 g/dL 06/13/2025 10:51 AM CDT [facility] HEMATOCRIT (HCT) 43.7 38.0 - 50.0 % 06/13/2025 10:51 AM CDT [facility] MCV 94.8 82.0 - 96.0 fL 06/13/2025 10:51 AM CDT [facility] MCH 31.5 26.0 - 32.0 pg 06/13/2025 10:51 AM CDT [facility] MCHC 33.2 31.0 - 36.0 g/dL 06/13/2025 10:51 AM CDT [facility] PLATELET COUNT 359 140 - 440 10(3)/mcL 06/13/2025 10:51 AM CDT [facility] RDW 11.5(L) 11.8 - 15.5 % 06/13/2025 10:51 AM CDT [facility] MPV 9.1 8.0 - 12.6 fL 06/13/2025 10:51 AM CDT [facility] NEUTROPHILS 61.7 40.0 - 68.0 % 06/13/2025 10:51 AM CDT [facility] LYMPHOCYTES 28.0 19.0 - 49.0 % 06/13/2025 10:51 AM CDT [facility] MONOCYTES 9.2 3.0 - 13.0 % 06/13/2025 10:51 AM CDT [facility] EOSINOPHILS 0.4 0.0 - 8.0 % 06/13/2025 10:51 AM CDT [facility] BASOPHILS 0.2 0.0 - 1.0 % 06/13/2025 10:51 AM CDT [facility] IMMATURE GRANULOCYTE 0.5(H) 0.0 - 0.4 % 06/13/2025 10:51 AM CDT [facility] Comment:Immature Granulocyte s includes Metamyelocytes, Myelocytes, and Promyelocytes. ABSOLUTE NEUTROPHILS 6.73(H) 1.40 - 5.30 10(3)/mcL 06/13/2025 10:51 AM CDT [facility] ABSOLUTE LYMPHOCYTES 3.05 0.90 - 3.30 10(3)/mcL 06/13/2025 10:51 AM CDT [facility] ABSOLUTE MONOCYTES 1.00(H) 0.10 - 0.90 10(3)/mcL 06/13/2025 10:51 AM CDT [facility] ABSOLUTE EOSINOPHIL 0.04 0.00 - 0.50 10(3)/[facility] 06/13/2025 10:51 AM CDT [facility] ABSOLUTE BASOPHILS 0.02 0.00 - 0.10 10(3)/[facility] 06/13/2025 10:51 AM CDT [facility] ABSOLUTE IMMATURE GRANULOCYTE 0.05(H) 0.00 - 0.03 10 (3) mcL. 06/13/2025 10:51 AM CDT [facility] NRBC PER 100 WBC 0 06/13/20 10:51 AM CDT [facility] Blood Venipuncture / Unknown 06/13/2025 9:50 AM CDT 06/13/2025 10:41 AM CDT Kala Fields MD HEMATOLOGY ORDERABLES Fi nal Result Performing Organization Address City/[facility]/ZIP Co de Phone Number [facility] [address] [place] [address] * Magnesium (Mg) [id number] (06/13/2025 9:50 AM CDT) MAGNESIUM 1.9 1.6 - 2.6 mg/dL 06/13/2025 11:10 AM CDT [facility] Blood Venipuncture / Unknown 06/13/2025 9:50 AM CDT 06/13/2025 10:41 AM CDT Kala Fields MD CHEMISTRY ORDERABLES Fin al Result [facility] [address] [place] [address] * (ABNORMAL) CMP (Comprehensive Metabolic Panel) (06/13/2025 9:50 AM CDT) SODIUM 141 136 - 145 mmol/L 06/13/2025 11:10 AM CDT [facility] POTASSIUM 3.7 3.5 - 5.1 mmol/L 06/13/2025 11:10 AM CDT [facility] CHLORIDE 103 98 - 107 mmol/L 06/13/2025 11:10 AM CDT [facility] CO2, VENOUS 27 22 - 30 mmol/L 06/13/2025 11:10 AM CDT [facility] ANION GAP 14.7 <18.0 mmol/L 06/13/2025 11:10 AM CDT [facility] GLUCOSE 91 70 - 99 mg/dL 06/13/2025 11:10 AM CDT [facility] BUN 10 9 - 21 mg/dL 06/13/2025 11:10 AM CDT [facility] CREATININE, BLOOD 1.22 0.70 - 1.30 mg/dL 06/13/2025 11:10 AM CDT [facility] BUN/CREATININE RATIO 8(L) 12 - 20 ratio 06/13/2025 11:10 AM CDT [facility] TOTAL PROTEIN 7.8 6.0 - 8.0 g/dL 06/13/2025 11:10 AM CDT [facility] ALBUMIN 4.7 3.5 - 5.0 g/dL 06/13/2025 11:10 AM CDT [facility] A/G RATIO 1.5 1.0 - 2.2 06/13/2025 11:10 AM CDT [facility] CALCIUM 9.0 8.7 - 10.5 mg/dL 06/13/2025 11:10 AM CDT [facility] T BILI 1.6(H) 0.2 - 1.2 mg/dL 06/13/2025 11:10 AM CDT [facility] SGOT (AST) 28 <43 U/L 06/13/2025 11:10 AM CDT [facility] SGPT (ALT) 46 <56 U/L 06/13/2025 11:10 AM CDT [facility] ALKALINE PHOSPHATASE 62 40 - 150 U/L 06/13/2025 11:10 AM CDT [facility] GFR, ESTIMATED >60 >=60 06/13/2025 11:10 AM CDT [facility] Comment: Creatinine Clearance is the preferred criteria for selecting drug dose adjustments in renally impaired patients. The GFR is provided as additional pertinent clinical information. GFR is reported in mL/min/1.73 sq m. Calculation based on the 2020 Chronic Kidney Disease Epidemiology Collaboration (CKD-EPI) equation refit without adjustment for race. GFR, EST. >60 >=60 025 11:10 AM CDT [facility] Comment: Creatinine Clearance is the preferred criteria for selecting drug dose adjustments in renally impaired patients. The GFR is provided as additional pertinent clinical information. GFR is reported in mL/min/1.73 sq m. Calculation based on the 2009 Chronic Kidney Disease Epidemiology Collaboration (CKD-EPI). GFR, EST. NONAFRICAN >60 >=60 06/13/2025 11:10 AM CDT [facility] Comment: Creatinine Clearance is the preferred criteria for selecting drug dose adjustments in renally impaired patients. The GFR is provided as additional pertinent clinical information. GFR is reported in mL/min/1.73 sq m. Calculation based on the 2009 Chronic Kidney Disease Epidemiology Collaboration (CKD-EPI). Blood Venipuncture / Unknown 06/13/2025 9:50 AM CDT 06/13/2025 10:41 AM CDT us Kala Fields MD CHEMISTRY ORDERABLES Fin al Result [facility] [address] [place] [address] from Last 3 Months Insurance MEDICAID [employer] Care Teams Detective Private Eye Relationship Specialty Start Date End Date Provider, Unknown UNKNOWN PCP - General 06/19/24
[2025-06-26 00:49] LABS: Alanine Aminotransferase 50 U/L (6-50); Albumin Level 4.5 g/dL (3.5-5.1); Alkaline Phosphatase 51 U/L (38-126); Anion Gap 8 mmol/L (4-12); Aspartate Amino Transferase 36 U/L (17-59); Bilirubin,Total 1.6 mg/dL (0.2-1.3); Blood Urea Nitrogen 15 mg/dL (9-20); Calcium 8.9 mg/dL (8.4-10.2); Carbon Dioxide 28 mmol/L (22-30); Chloride 100 mmol/L (98-107); Estimated CRCL calculation 80 ml/min; Estimated Glomerular Filt Rate > 60; Glucose 96 mg/dL (65-110); Potassium 3.9 mmol/L (3.4-5.0); Sodium 136 mmol/L (137-145); Total Protein 8.1 g/dL (6.3-8.2)
[2025-06-26 00:50] LABS: INR 1.0; Prothrombin Time 12.9 Seconds (11.1-14.7)
[2025-06-26 00:51] LABS: Partial Thromboplastin Time 24.8 Seconds (22.3-36.8)
[2025-06-26 00:59] LABS: Troponin I 0.013 ng/mL (0.000-0.034)
[2025-06-26] MEDS: SODIUM CHLORIDE 0.9% IV 1,000 ML 999 ML IV CONT (01:00)
[2025-06-26 01:36] LABS: Influenza A QL RT-PCR Negative (Negative); Influenza B QL RT-PCR Negative (Negative); RSV RNA, RT-PCR Negative (Negative); SARS-CoV-2 RNA PCR Negative (Negative)
== END 2025-06-26 02:54 | disposition home or self-care (01) ==
PROVIDERS: Emergency Provider Physician Assistant
DX: J45.909 Unspecified asthma, uncomplicated (principal); R03.0 Elevated blood-pressure reading, without diagnosis of hypertension; Z20.822 Contact with and (suspected) exposure to COVID-19
CPT/HCPCS: 36415; 71046; 80053; 84484; 85025; 85380; 85610; 85730; 87637; 93005; 96360; 99284; J7030